=== PATIENT | male | born 1960 | race Caucasian/White ===

== ENCOUNTER → 2017-02-02 | Outpatient (CLI) | payer MEDICARE ==
[2017-02-02 21:35] LABS: BUN 12 mg/dL (7-18)
[2017-02-02 21:51] LABS: GFR (ESTIMATED) 78 ML/MIN (>60)
[2017-02-02 21:58] LABS: AMPHETAMINES/METAMPHETAMINES NEGATIVE ng/mL (<1000)
[2017-02-04 08:46] LABS: PSA, Free 0.32 ng/mL; Prostate Specific Ag 0.6 ng/mL (0.0-4.0); Vitamin D, 25-Hydroxy 21.7 ng/mL (30.0-100.0)
[2017-02-04 09:38] LABS: Folate (Folic Acid) 17.4 ng/mL (>3.0); Vitamin B12 944 pg/mL (211-946)
[2017-02-04 10:40] LABS: HBsAg Screen Positive (Negative); Hep A Ab, IgM Negative (Negative); Hep B Core Ab, IgM Positive (Negative); Hep C Virus Ab <0.1 (0.0-0.9)
== END ==
LOC: LAB 20:09
PROVIDERS: Physician Assistant
DX: G62.9 Polyneuropathy, unspecified (principal); E78.5 Hyperlipidemia, unspecified; K21.9 Gastro-esophageal reflux disease without esophagitis; F41.9 Anxiety disorder, unspecified; Z79.4 Long term (current) use of insulin; Z12.5 Encounter for screening for malignant neoplasm of prostate; E55.9 Vitamin D deficiency, unspecified; Z79.899 Other long term (current) drug therapy

== ENCOUNTER → 2017-02-10 | Outpatient (CLI) | payer MEDICARE ==
[2017-02-12 16:37] LABS: HBV IU/mL 365000000 IU/mL (.); HBV IU/mL See Final Results IU/mL (.); log10 HBV IU/mL 8.562 (.)
== END ==
LOC: LAB 10:47
PROVIDERS: Emergency Medicine
DX: R76.8 Other specified abnormal immunological findings in serum (principal)